=== PATIENT | male | born 1970 | race Caucasian/White ===

== ENCOUNTER 2020-12-10 19:36 | Emergency (ER) | payer BC, OTHER ==
--- NOTE | 2020-12-10 20:30 | EDM.PDOC ---
ED HPI GENERAL MEDICAL PROBLEM - General Stated Complaint: LEFT FOOT, SWALLON, INJURY BY AIR SEEDER Time Seen by Provider: 12/10/20 21:00 Source of Information: Reports: Patient History Limitations: Reports: No Limitations - History of Present Illness INITIAL COMMENTS - FREE TEXT/NARRATIVE: ED with c/o pain and swelling to left foot. 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 Immediately removed boot. No other injury. Left Anterior Feet Pain Score (Numeric/FACES): 3 - Related Data Allergies Allergy/AdvReac Type Severity Reaction Status Date / Time No Known Allergies Allergy Verified 12/10/20 20:58 Social & Family History - Living Situation & Occupation Living situation: Reports: Occupation: Employed Review of Systems - Review of Systems Review Of Systems: Comprehensive ROS is negative, except as noted in HPI. ED EXAM, GENERAL - Physical Exam Exam: See Below Exam Limited By: No Limitations General Appearance: Alert, Mild Distress Eye Exam: Bilateral Eye: EOMI Ears: Normal External Exam Head: Atraumatic, Normocephalic Neck: Full Range of Motion Respiratory/Chest: Normal Breath Sounds Cardiovascular: Normal Peripheral Pulses Extremities: Other (left forefoot swollen ecchymosotic, greater distal 3rd 4th and 5th metatarsals) Neurological: Alert, Oriented, Normal Cognition Psychiatric: Normal Affect Skin Exam: Warm, Dry, Intact, Ecchymosis Course - Vital Signs Last Recorded V/S: Last Vital Signs Temp 99.3 F 12/10/20 20:54 Pulse 81 12/10/20 20:54 Resp 18 12/10/20 20:54 BP 163/95 H 12/10/20 20:54 Pulse Ox 99 12/10/20 20:54 Departure - Departure Time of Disposition: 23:23 Disposition: Home, Self-Care 01 Condition: Good Clinical Impression: Contusion, foot Qualifiers: Encounter type: initial encounter Laterality: left Qualified Code(s): S90.32XA - Contusion of left foot, initial encounter - Discharge Information *PRESCRIPTION DRUG MONITORING PROGRAM REVIEWED*: No *COPY OF PRESCRIPTION DRUG MONITORING REPORT IN PATIENT BASILIA: No Instructions: Foot Contusion, [id number] Referrals: PCP,None [Primary Care Provider] - Forms: ED Department Discharge Additional Instructions: alternate tylenol and ibuprofen every 4 hours as needed for discomfort weight bearing as tolerated Sepsis Event Note (ED) - Focused Exam Vital Signs: Vital Signs Temp Pulse Resp BP Pulse Ox 12/10/20 20:54 99.3 F 81 18 163/95 H 99
--- NOTE | 2020-12-10 21:27 | CR ---
PROCEDURE INFORMATION: Exam: XR Left Foot Exam date and time: 12/10/2020 9:01 PM Age: 50 years old Clinical indication: Injury or trauma; Other: Seeder wheel landed on top; Blunt trauma; Foot; Left TECHNIQUE: Imaging protocol: XR Left foot. Views: 3 or more views. Total images: 3 COMPARISON: No relevant prior studies available. FINDINGS: Bones/joints: Normal. Well corticated bony fragment along the dorsal aspect of the talus compatible with old trauma. Soft tissues: Normal. IMPRESSION: No acute findings.
== END 2020-12-10 23:40 | disposition home or self-care (01) ==
LOC: DL.ED 19:36
DX: S90.32XA Contusion of left foot, initial encounter (principal); W20.8XXA Other cause of strike by thrown, projected or falling object, initial encounter
CPT/HCPCS: 73630-LT; 99282; 99283

== ENCOUNTER 2020-12-18 10:59 | Emergency (ER) | payer OTHER ==
--- NOTE | 2020-12-18 11:24 | EDM.PDOC ---
ED HPI GENERAL MEDICAL PROBLEM - General Chief Complaint: General Stated Complaint: [id number] LEFT FOOT INFECTION Time Seen by Provider: 12/18/20 11:15 Source of Information: Reports: Patient, Old Records, RN, RN Notes Reviewed History Limitations: Reports: No Limitations - History of Present Illness INITIAL COMMENTS - FREE TEXT/NARRATIVE: Ovidio is a 50 y/o male who presents to the ED via personal vehicle with complaints of redness and increased pain to the lateral dorsal aspect of his left foot. The patient was examined in this facility eight days ago, on 12/10/20, following an injury to this extremity via an air seeder falling onto his foot. Imaging of the foot r/o fracture or dislocation. The patient states in the entirety the bruising and swelling to his left foot has decreased, however he is concerned about an area that has become more swollen and red in the past 48 hours. Additionally, he has noticed the area has opened with scant clear drainage, as well as a slight increase in pain. He denies fever, shaking chills, palpitations, decrease in motor function or sensory function to the area. He has not taken any medications for this problem. Left Foot Pain Score (Numeric/FACES): 5 - Related Data Allergies Allergy/AdvReac Type Severity Reaction Status Date / Time No Known Allergies Allergy Verified 12/18/20 11:14 Home Meds: Home Meds . [No Known Home Meds] 12/18/20 [History] Past Medical History - Past Health History Medical/Surgical History: Denies Medical/Surgical History Immunologic History: Reports: None - Infectious Disease History Infectious Disease History: Reports: None Social & Family History - Family History Family Medical History: No Pertinent Family History - Tobacco Use Tobacco Use Status *Q: Never Tobacco User - Caffeine Use Caffeine Use: Reports: Soda - Recreational Drug Use Recreational Drug Use: No - Living Situation & Occupation Living situation: Reports: Occupation: Employed ED ROS GENERAL - Review of Systems Review Of Systems: Comprehensive ROS is negative, except as noted in HPI. ED EXAM, GENERAL - Physical Exam Exam: See Below Exam Limited By: No Limitations General Appearance: Alert, No Apparent Distress Throat/Mouth: Normal Inspection, Normal Voice, No Airway Compromise Respiratory/Chest: No Respiratory Distress, Lungs Clear, Normal Breath Sounds, No Accessory Muscle Use, Chest Non-Tender Cardiovascular: Normal Peripheral Pulses, Regular Rate, Rhythm, No Edema, No Gallop, No JVD, No Murmur, No Rub Peripheral Pulses: 2+: Posterior Tibial (L), Dorsalis Pedis (L) Extremities: Normal Range of Motion, No Pedal Edema, Normal Capillary Refill, Joint Swelling (Trace to left distal foot), Leg Pain (To left lateral, dorsal aspect of foot), Redness (1cm x 1.5cm area of erythema surrounding scab ). No: Increased Warmth Neurological: Alert, Oriented, CN II-XII Intact, Normal Cognition, No Motor/Sensory Deficits, Abnormal Gait (Limping gait) Psychiatric: Normal Affect, Normal Mood Skin Exam: Warm, Dry, Ecchymosis (Scattered to distal aspect of left foot), Erythema (1cm x 1.5cm area of erythema surrounding scab ), Wound/Incision (Scab to lateral dorsal aspect of left foot). No: Normal Color, No Rash, Increased Warmth, Mottled, Pallor, Petechiae Course - Vital Signs Last Recorded V/S: Last Vital Signs Temp 98.7 F 12/18/20 11:10 Pulse 90 12/18/20 11:10 Resp 14 12/18/20 11:10 BP 143/86 H 12/18/20 11:10 Pulse Ox 96 12/18/20 11:10 - Re-Assessments/Exams Free Text/Narrative Re-Assessment/Exam: 12/18/20 Palpable fluid under erythema/ecchymosis; no sac appreciated. Will treat empirically for infected hematoma with cephalexin. Discussed supportive cares as well as red flag signs and symptoms which would warrant reevaluation. Patient verbalized understanding and agreement with the plan of care. Departure - Departure Time of Disposition: 11:24 Disposition: Home, Self-Care 01 Condition: Good Clinical Impression: Cellulitis of foot Traumatic hematoma of left foot Qualifiers: Encounter type: subsequent encounter Qualified Code(s): S90.32XD - Contusion of left foot, subsequent encounter - Discharge Information *PRESCRIPTION DRUG MONITORING PROGRAM REVIEWED*: Not Applicable *COPY OF PRESCRIPTION DRUG MONITORING REPORT IN PATIENT BASILIA: Not Applicable Instructions: Cellulitis, Adult Referrals: PCP,None [Primary Care Provider] - Forms: ED Department Discharge Additional Instructions: Rx: cephalexin 1.) Take all of your antibiotic until gone, even as symptoms improve. 2.) You may apply ice to the affected area as pain and swelling persist; 20 minutes, every hour, while at rest. 3.) You may apply compression via wrap or stocking to the left foot, as pain and swelling persist. 4.) You may take ibuprofen (Advil/Motrin) 400mg every six hours, as pain and swelling persists. You may also take acetaminophen (Tylenol) 650mg every six hours, as pain persists. You may stagger these medications so you are receiving a dose every three hours. 5.) Follow up with your primary care provider, or return to the emergency department, with no improvement in symptoms with three days of medication. Sepsis Event Note (ED) - Evaluation Sepsis Screening Result: No Definite Risk - Focused Exam Vital Signs: Vital Signs Temp Pulse Resp BP Pulse Ox 12/18/20 11:10 98.7 F 90 14 143/86 H 96
== END 2020-12-18 11:30 | disposition home or self-care (01) ==
LOC: DL.ED 10:59
DX: L03.116 Cellulitis of left lower limb (principal); S90.32XD Contusion of left foot, subsequent encounter; W20.8XXD Other cause of strike by thrown, projected or falling object, subsequent encounter
CPT/HCPCS: 99282; 99283

== ENCOUNTER 2021-12-04 06:54 | Day surgery (SDC) | payer OTHER ==
[~2021-12-04 06:54] MED LIST: Dextrose 5%-0.45% NaCl 1,000 ML IV SCH; Midazolam 1 MG/ML 2 ML SDV ONE; Sodium Chloride 0.9% 10 ML Syringe FLUSH PRN; Sodium Chloride 0.9% 10 ML Syringe FLUSH SCH; fentaNYL 100 MCG/2 ML SDV ONE
[2021-12-04] MEDS ORDERED: Midazolam 1 MG/ML 2 ML SDV IV ONE ×7 (06:55→08:53)
[2021-12-04] MEDS ORDERED: fentaNYL 100 MCG/2 ML SDV IV ONE ×3 (06:55→08:46)
== END 2021-12-04 10:59 | disposition home or self-care (01) ==
LOC: DL.ENDO 06:54
PROVIDERS: ATTEND Internal Medicine Gastroenterology
DX: Z12.11 Encounter for screening for malignant neoplasm of colon (principal); L82.1 Other seborrheic keratosis; Z01.812 Encounter for preprocedural laboratory examination; Z20.822 Contact with and (suspected) exposure to COVID-19; Z98.890 Other specified postprocedural states
CPT/HCPCS: 45378; 87635; J2250; J3010; J7042; U0002